=== PATIENT | male | born 1950 | race Caucasian/White ===

== ENCOUNTER → 2020-01-18 08:54 | Outpatient (CLI) | payer MEDICARE, SELFPAY ==
[2020-01-18 11:50] LABS: COVID19 -Nasal RAPID Negative (Negative)
== END ==
PROVIDERS: Family Provider Family Medicine; PCP Family Medicine; Visit Provider Physician Assistant
DX: Z11.59 Encounter for screening for other viral diseases (principal)
CPT/HCPCS: 87635

== ENCOUNTER → 2020-05-19 12:37 | Outpatient (CLI) | payer MEDICARE, SELFPAY ==
[2020-05-19] MEDS: COVID-19 VACC, Ad26(JANSSEN)/PF 0.5 ML IM (12:55)
== END ==
PROVIDERS: Family Provider Family Medicine; PCP Family Medicine; Visit Provider Internal Medicine
DX: Z23 Encounter for immunization (principal)
CPT/HCPCS: 0031A; 91303

== ENCOUNTER → 2022-04-24 06:46 | Outpatient (CLI) | payer OTHER, SELFPAY ==
--- NOTE | 2022-04-24 | DI.US.S_ITS ---
PROCEDURE: US ABD AORTA ANEURYSM SCREEN INDICATIONS: HISTORY OF SMOKING (PRIOR) TECHNIQUE: Real time scanning was performed of the aorta and iliac arteries, with image documentation. COMPARISON: None. FINDINGS: Aorta: Proximal aortic diameter measures 2.9 cm. Mid-aorta measures 2.5 cm. Distal aortic diameter is 5 x 4.8 cm. (13.2 cm in length. There is intramural thrombus). Iliac arteries: Right common iliac artery measures 1.3 cm. Left common iliac artery measures 1.2 cm. IMPRESSION: Infrarenal abdominal aortic aneurysm measuring 5 cm. Recommend CTA abdominal aorta for further evaluation. Dictated by: Emerson Vela M.D. on 04/24/2022 at 15:48 Approved by: Emerson Vela M.D. on 04/24/2022 at 15:50
== END ==
LOC: US 06:49
PROVIDERS: Family Provider Family Medicine; PCP Family Medicine; Referring Provider Physician Assistant; Visit Provider Physician Assistant
DX: Z13.6 Encounter for screening for cardiovascular disorders (principal); I71.40 Abdominal aortic aneurysm, without rupture, unspecified
CPT/HCPCS: 76706

== ENCOUNTER → 2022-08-02 10:09 | Outpatient (CLI) | payer OTHER, SELFPAY ==
--- NOTE | 2022-08-02 | DI.CT.S_ITS ---
PROCEDURE: CT ANGIO ABDOMEN PELVIS INDICATIONS: Infrarenal abdominal aortic aneurysm TECHNIQUE: After the administration of intravenous contrast, 2.5 mm thick sections acquired from the diaphragm to the symphysis. 10 mm maximum-intensity projection (MIP) reformats were then acquired. For radiation dose reduction, the following was used: automated exposure control. COMPARISON: None. FINDINGS: Image quality: Excellent. Aorta: There is fusiform dilatation of the infrarenal abdominal aorta which measures up to 4.4 cm in AP diameter. Mesenteric arteries: Celiac trunk, superior and inferior mesenteric arteries appear patent. Right pelvic arteries: Atheromatous calcifications are present throughout the right common iliac artery with mild multifocal stenosis. The internal and external iliac artery and the common femoral artery are patent. Left pelvic arteries: Atheromatous calcifications are present throughout the left common iliac artery. Mild multifocal stenosis is present. The internal and external iliac and common femoral artery are widely patent. Extravascular soft tissues: Lung bases are clear. Heart size is normal. Liver is normal in size and enhancement. Gallbladder is unremarkable. Biliary system is non dilated. Pancreas enhances normally. Spleen is normal in size and enhancement. No adrenal nodules. Kidneys are normal in size and enhancement, without hydronephrosis. Non opacified bowel loops are normal in wall thickness and caliber. No free fluid or air. No retroperitoneal or mesenteric adenopathy. No ventral hernias. There is mild circumferential wall thickening of the partially distended bladder. No suspicious bony lesions. No vertebral body compression fractures. IMPRESSION: 1. Fusiform aneurysmal dilatation. The abdominal aortic aneurysm measures up to 4.4 cm in maximum AP diameter. Annual sonographic surveillance recommended. 2. Circumferential wall thickening of the bladder which is partially distended with urine. Differential considerations include decompressed bladder and cystitis. Please correlate with urinalysis. Dictated by: Saritha Rae M.D. on 08/02/2022 at 14:03 Approved by: Saritah Rae M.D. on 08/02/2022 at 14:09
== END ==
PROVIDERS: Family Provider Family Medicine; PCP Physician Assistant; Referring Provider Physician Assistant; Visit Provider Physician Assistant
DX: I71.43 Infrarenal abdominal aortic aneurysm, without rupture (principal)
CPT/HCPCS: 74174; Q9967

== ENCOUNTER → 2023-01-08 08:04 | Outpatient (CLI) | payer OTHER, SELFPAY ==
--- NOTE | 2023-01-08 | DI.NM.S_ITS ---
PROCEDURE: NM RASHID PERF SPECT R&S PHARM Rest and pharmacological stress myocardial perfusion SPECT with gated imaging and ejection fraction RADIOPHARMACEUTICAL: 12.8 mCi Tc-99m tetrafosmin IV at rest and 25.0 mCi Tc-99m tetrafosmin IV at peak effect of pharmacological stress. A [id number] was performed. INDICATIONS: Ventricular premature depolarization TECHNIQUE: Radiopharmaceutical was injected at peak stress test, and also at rest. SPECT images were obtained. SPECT myocardial perfusion images were displayed in short axis, horizontal long axis, and vertical long axis views. Gated images were reviewed using [employer] software. COMPARISON: None. CARDIAC STRESS: Exercise stress test Jak protocol 5:00, maximum heart rate 115 bpm (78% peak predicted), maximum blood pressure 190/82, 7.0 METS, MOHINDER +20%. Target heart rate unable to be achieved so the test was converted to a pharmacologic stress test performed under the supervision of an attending staff, using an infusion of regadenoson 0.4 mg IV. Hemodynamic data: There is normal blood pressure and heart rate response to pharmacologic stress. Symptoms: The patient denied anginal chest pain. EKG: Rest ECG sinus rhythm, frequent PVCs. Exercise ECG sinus tachycardia, [address] segment depressions leads II, III, aVF, V3 to V6, frequent PVCs. FINDINGS: Raw data: There is good myocardial uptake of radiotracer. No significant motion artifacts. Iwyy-wi-gqmwr ratio is 0.24 (normal is less than 0.38 for tetrafosmin tracer). Left ventricle function: Gated images demonstrate normal left ventricular wall thickening. No segmental wall motion abnormalities. No transient ischemic dilation; TID is 0.63 (normal less than 1.3). Left ventricle resting end diastolic volume is 111 mL. Left ventricle stress ejection fraction is >75%; normal range is above 45%. Myocardial perfusion: There is normal distribution of activity in the right and left ventricular myocardium. No fixed or reversible perfusion defects. IMPRESSION: Low risk exercise converted to pharmacologic stress test due to inability to achieve target heart rate. No evidence of pharmacologic induced ischemia on SPECT imaging. Normal LV size and function. Submaximal exercise ECG with diffuse [address] segment depressions. Normal hemodynamic response to exercise. Slightly reduced exercise capacity. Dictated by: Mandy Ortiz D.O. on 01/08/2023 at 16:24 Approved by: Mandy Ortiz D.O. on 01/08/2023 at 16:34
--- NOTE | 2023-01-08 | DI.ECHO.S_ITS ---
[facility] +---------+ : : [address] : [place] : : : : [id number] : : : : Phone: [phone]---------+ Echocardiogram Report + + :Name: CHERY MUÑOZ Study Date: 01/08/2023 Height: 72 in : :[facility] ReadingLocation: Weight: 230 lb : : Gender: Male BSA: 2.3 m2 : :: 1950 Age: 73 yrs BP: 143/82 mmHg: :Reason For Study: VENTRICULAR PREMATURE DEPOLARIZATION : :Ordering Physician: OLLIE, : :KEKE Performed By: Adwoa Beckman : :Referring: KEKE LEVIN : + + Interpretation Summary The left ventricle is normal in size and wall thickness. The left ventricular ejection fraction is normal. The ejection fraction is estimated to be 60-65%. The right ventricle is normal in size and function. No significant valvular pathology seen. The IVC is dilated (diameter is greater than 2.1 cm) yet it collapses greater than 50% with a sniff. This suggests a right atrial pressure of 8 mm Hg. Procedure: A two-dimensional transthoracic echocardiogram with color flow and Doppler was performed. The study quality was technically adequate. There is no prior echocardiogram noted for this patient. The patient was in sinus bradycardia with heart rates between 49-63 bpm during the exam. Left Ventricle: The left ventricle is normal in size and wall thickness. There is no thrombus. The ejection fraction is estimated to be 60-65%. The left ventricular ejection fraction is normal. There are no focal wall motion abnormalities. No significant diastolic dysfunction. Right Ventricle: The right ventricle is normal in size and function. Atria: The left atrial size is normal. Right atrial size is normal. A prominent eustachian valve is noted. There is no Doppler evidence for an interatrial shunt. Mitral Valve: There is mild mitral annular calcification. There is mild mitral regurgitation. Aortic Valve: The aortic valve is trileaflet. The aortic valve opens well. There is no aortic valve stenosis. There is trace aortic regurgitation. Tricuspid Valve: The tricuspid valve is normal. There is mild tricuspid regurgitation. Pulmonary artery pressures cannot be estimated because of the lack of a measurable TR jet velocity. Pulmonic Valve: The pulmonic valve leaflets are thin and pliable; valve motion is normal. There is no pulmonic valvular regurgitation. Great Vessels: The aortic root is normal size. The dimensions of the ascending aorta are normal. The IVC is dilated (diameter is greater than 2.1 cm) yet it collapses greater than 50% with a sniff. This suggests a right atrial pressure of 8 mm Hg. Pericardium/ Pleura There is no pericardial effusion. There is no pleural effusion. MMode/2D Measurements & Calculations LVIDd: 4.7 cm LVOT diam: 2.4 cm LVIDs: 3.5 cm Ao root diam: 3.4 cm FS: 24.5 % asc Aorta Diam: 3.5 cm IVSd: 0.93 cm Ao Arch Diam (Prox Trans): 3.6 cm LVPWd: 0.95 cm LV renteria. diameter/BSA (cm/m^2): 2.1 LV sys. diameter/BSA (cm/m^2): 1.6 LA A2 area: 21.5 cm2 RA long axis: 5.6 cm LA A4 area: 19.3 cm2 RA area: 17.6 cm2 LA length (vol): 5.3 cm RA vol: 46.8 ml LA vol: 66.6 ml RA : 20.7 ml/m2 LA vol index: 29.5 ml/m2 IVC diam: 2.5 cm RVD1 (basal): 3.7 cm TAPSE: 2.3 cm Doppler Measurements & Calculations Ao V2 max: 117.1 cm/sec LVOT Max Claudio: 97.1 cm/sec Ao V2 mean: 80.9 cm/sec LV V1 max P.8 mmHg Ao max P.5 mmHg LV V1 VTI: 21.8 cm Ao mean P.9 mmHg EUGENIE(I,D): 3.8 cm2 Ao V2 VTI: 24.9 cm EUGENIE(V,D): 3.6 cm2 sev ratio: 0.88 EUGENIE indexed to BSA (cm^2/m^2): 1.7 MV E max claudio: 78.9 cm/sec PA V2 max: 100.9 cm/sec MV A max claudio: 68.6 cm/sec PA V2 mean: 64.3 cm/sec MV E/A: 1.2 PA mean P.9 mmHg Med Peak E' Claudio: 7.7 cm/sec PA pr(Accel): 39.6 mmHg E/E' med: 10.3 Lat Peak E' Claudio: 11.3 cm/sec E/E' lat: 7.0 E/e' average: 8.6 MV dec time: 0.29 sec SV(LVOT): 95.2 ml Reading Physician:12:10 PM
== END ==
PROVIDERS: Family Provider Family Medicine; PCP Physician Assistant; Referring Provider Internal Medicine Cardiovascular Disease; Visit Provider Internal Medicine Cardiovascular Disease
DX: I73.9 Peripheral vascular disease, unspecified (principal); I71.43 Infrarenal abdominal aortic aneurysm, without rupture; I49.3 Ventricular premature depolarization; I08.1 Rheumatic disorders of both mitral and tricuspid valves
CPT/HCPCS: 78452; 93017; 93306; A9502; J2785

== ENCOUNTER → 2023-02-05 10:44 | Outpatient (CLI) | payer OTHER, SELFPAY ==
[2023-02-05 13:17] LABS: Alanine Aminotransferase 31 IU/L (<50); Albumin 4.2 g/dL (3.5-5.0); Albumin Globulin Ratio 1.4 (1.0-2.8); Alkaline Phosphatase 53 U/L (38-126); Aspartate Aminotransferase 34 IU/L (17-59); BUN Creatinine Ratio 17.9 (6-22); Bilirubin Total 0.8 mg/dL (0.2-1.3); Blood Urea Nitrogen 21 mg/dL (9-20); Calcium 9.3 mg/dL (8.4-10.2); Carbon Dioxide 28 mmol/L (22-32); Chloride 103 mmol/L (98-107); Cholesterol 138 mg/dL (140-199); Estimated Glomerular Filt Rate > 60 mL/min (>60); Glucose 101 mg/dL (80-110); HDL Cholesterol 29 mg/dL (40-60); HEMOLYSIS < 15 (0-50); LDL Cholesterol Calculated 83 mg/dL (<100); Magnesium 2.1 mg/dL (1.6-2.3); Potassium 4.5 mmol/L (3.4-5.1); Sodium 139 mmol/L (137-145); Total Protein 7.2 g/dL (6.3-8.2); Triglycerides 130 mg/dL (35-150)
[2023-02-05 13:43] LABS: TSH w/ Reflex to FT4 1.04 uIU/mL (0.47-4.68)
== END ==
PROVIDERS: Family Provider Family Medicine; PCP Physician Assistant; Referring Provider Nurse Practitioner Acute Care; Visit Provider Nurse Practitioner Acute Care
DX: I49.3 Ventricular premature depolarization (principal); I10 Essential (primary) hypertension; I49.1 Atrial premature depolarization; E78.5 Hyperlipidemia, unspecified
CPT/HCPCS: 36415; 80053; 80061; 83735; 84443

== ENCOUNTER → 2024-01-29 08:48 | Outpatient (CLI) | payer MEDICARE, SELFPAY ==
[2024-01-29 11:19] LABS: Blood Urea Nitrogen 18 mg/dL (9-20); Calcium 9.1 mg/dL (8.4-10.2); Carbon Dioxide 27 mmol/L (22-32); Chloride 103 mmol/L (98-107); Estimated Glomerular Filt Rate 59 mL/min (>60); Glucose 96 mg/dL (80-110); HEMOLYSIS < 15 (0-50); Magnesium 1.9 mg/dL (1.6-2.3); Potassium 4.6 mmol/L (3.4-5.1); Sodium 139 mmol/L (137-145)
== END ==
LOC: LAB 08:51
PROVIDERS: Family Provider Family Medicine; PCP Physician Assistant; Referring Provider Internal Medicine Cardiovascular Disease; Visit Provider Internal Medicine Cardiovascular Disease
DX: I10 Essential (primary) hypertension (principal); I71.43 Infrarenal abdominal aortic aneurysm, without rupture
CPT/HCPCS: 36415; 80048; 83735